=== PATIENT | female | born 1980 | race Hispanic/Latino ===

== ENCOUNTER 2019-08-07 14:11 | Emergency (ER) | payer BC ==
[~2019-08-07] VITALS: Ht 162.6 cm; Wt 82.6 kg
[2019-08-07] MEDS ORDERED: KETOROLAC TROMETHAMINE 60 MG/2 ML VIAL IM ONE (14:30)
[2019-08-07] MEDS ORDERED: KETOROLAC TROMETHAMINE 60 MG/2 ML VIAL ONE (14:47)
--- NOTE | 2019-08-07 15:01 | Diagnostic Imaging Report ---
EXAMINATION: ANKLE 3VIEW LT - HOPD INDICATION: Trauma COMPARISON: None FINDINGS: No acute fracture or dislocation. The ankle mortise is intact and symmetric. No substantial ankle joint effusion. The soft tissues appear unremarkable. IMPRESSION: No acute osseous injury. Signed by: Chaitanya Martin MD on 08/07/2019 2:58 PM
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
== END 2019-08-07 15:31 | disposition home or self-care (01) ==
LOC: FSED 14:11
DX: S93.492A Sprain of other ligament of left ankle, initial encounter (principal); X50.1XXA Overexertion from prolonged static or awkward postures, initial encounter; Y92.008 Other place in unspecified non-institutional (private) residence as the place of occurrence of the external cause; E11.9 Type 2 diabetes mellitus without complications; E78.5 Hyperlipidemia, unspecified; F17.210 Nicotine dependence, cigarettes, uncomplicated
CPT/HCPCS: 29515; 73610; 99283; J1885